=== PATIENT | female | born 1965 | race Two or more races ===

== ENCOUNTER 2019-04-03 09:05 | Outpatient (CLI) | payer OTHER | END 2019-04-03 23:59 | disposition home or self-care (01) | LOC: STAR 09:05 | PROVIDERS: ATTEND Student in an Organized Health Care Education/Training Program | DX: Z01.818 Encounter for other preprocedural examination (principal); N93.9 Abnormal uterine and vaginal bleeding, unspecified | CPT/HCPCS: 36415; 85025 ==

== ENCOUNTER 2019-04-08 13:27 | Inpatient (IN) | payer OTHER ==
[~2019-04-08] VITALS: Ht 165.1 cm; Wt 70.4 kg
[2019-04-09 13:40] VITALS: BP 114/69
== END 2019-04-09 15:58 | disposition home or self-care (01) | DRG 742 ==
LOC: OR 13:27 → 4NOR 20:41 → OR 22:07 → DCLOUNGE 04-09 15:45
PROVIDERS: ADMIT Student in an Organized Health Care Education/Training Program; ATTEND Student in an Organized Health Care Education/Training Program
PROC: 0UT90ZZ Resection of Uterus, Open Approach (ICD-10-PCS; principal; 2019-04-08)
PROC: 0UT70ZZ Resection of Bilateral Fallopian Tubes, Open Approach (ICD-10-PCS; 2019-04-08)
PROC: 0TJB8ZZ Inspection of Bladder, Via Natural or Artificial Opening Endoscopic (ICD-10-PCS; 2019-04-08)
DX: D25.9 Leiomyoma of uterus, unspecified (principal); D62 Acute posthemorrhagic anemia; D64.9 Anemia, unspecified; G89.18 Other acute postprocedural pain; Z53.31 Laparoscopic surgical procedure converted to open procedure; Z80.41 Family history of malignant neoplasm of ovary; Z98.51 Tubal ligation status
CPT/HCPCS: 36415; 74018; 81025; 85014; 85018; 88307; G0378; J0171; J0690; J1100; J1885; J2250; J2405; J2704; J2710; J3010; J3490; J2270; J7120